=== PATIENT | female | born 1935 | race Caucasian/White ===

== ENCOUNTER 2019-08-01 11:48 | Emergency (ER) | payer MEDICARE, OTHER ==
--- NOTE | 2019-08-01 12:18 | PHYS DOC ---
Past History Past Medical History: CAD, CVA, Diabetes (EDDIE SANCHEZ DO) Past Surgical History: No Surgical History (EDDIE SANCHEZ DO) Smoking: Non-smoker Alcohol Use: None Drug Use: None (EDDIE SANCHEZ DO) Adult General Chief Complaint Chief Complaint: MEDICAL CLEARANCE [facility] HPI Patient is an 84-year-old female who presents for clearance for [facility]. Patient reportedly lives at home and has been having auditory hallucinations. Patient also has been having some angry outbursts was slamming doors. Patient denies any specific complaints other than that she keeps hearing the song that striving her batty. She denies any chest pain or shortness of breath. She also denies any nausea, vomiting or diarrhea.[] (YUDITH GA Jr. DO) Review of Systems Review of Systems Constitutional: Denies fever or chills [] Respiratory: Denies cough or shortness of breath [] Cardiovascular: No additional information not addressed in HPI [] GI: Denies abdominal pain, nausea, vomiting or diarrhea [] Integument: Denies rash or skin lesions [] Neurologic: Denies headache, focal weakness or sensory changes [] All other systems were reviewed and found to be within normal limits, except as documented in this note. (YUDITH GA Jr. DO) Physical Exam Physical Exam Constitutional: Well developed, well nourished, no acute distress, non-toxic appearance. [] HENT: Normocephalic, atraumatic, bilateral external ears normal, oropharynx moist, no oral exudates, nose normal. [] Eyes: PERRLA, EOMI, conjunctiva normal, no discharge. [] Neck: Normal range of motion, no tenderness, supple, no stridor. [] Cardiovascular: Regular rate and rhythm[] Lungs & Thorax: Bilateral breath sounds clear to auscultation [] Abdomen: Bowel sounds normal, soft, no tenderness. [] Skin: Warm, dry, no erythema, no rash. [] Extremities: No tenderness, no cyanosis, no clubbing, ROM intact. [] Neurologic: Awake and alert, no focal deficits noted. [] (YUDITH GA Jr. DO) Physical Exam Constitutional: Well developed, well nourished, no acute distress, non-toxic appearance HENT: Normocephalic, atraumatic, oropharynx moist Eyes: PERRL, EOMI, conjunctiva normal, no discharge Neck: Normal range of motion, no tenderness, supple Cardiovascular: Heart rate normal, regular rhythm Lungs & Thorax: Bilateral breath sounds clear to auscultation, no wheezing Abdomen: Soft, no tenderness Skin: Warm, dry, no erythema, no rash Extremities: No tenderness, ROM intact, no edema Neurologic: Alert and oriented, no focal deficits noted Psychologic: Affect flatl, judgement abnormal (EDDIE SANCHEZ DO) EKG EKG [] (YUDITH GA Jr., DO) Radiology/Procedures Radiology/Procedures [] (YUDITH GA Jr., DO) Course & Med Decision Making Course & Med Decision Making Pertinent Labs and Imaging studies reviewed. (See chart for details) [] (YUDITH GA Jr., DO) Course & Med Decision Making Addendum by Dr. Cotl Wright as 0553: I assumed care of patient at 1800. Patient had been evaluated and recommended involuntary inpatient psychiatric care. The patient is currently pending acceptance to another facility. Patient given home meds while in the emergency department. At time of sign out, patient resting comfortably and vital signs are stable. Patient signed out to nimisha Coyle physician. (COLT WRIGHT MD) Course & Med Decision Making 0600- Sign out received from Dr. Wright for patient with concern for psychosis and need for inpatient psychiatric services. Patient previously medically cleared. Labs reviewed. Patient also previously assessed and deemed to require inpatient psychiatric services. Awaiting placement. Patient seen and evaluated by myself. 1430- Dr. Edward Miramontes at [facility] in [facility] accepting of transfer. Discussed findings and plan with patient, who acknowledges understanding and agreement. (EDDIE SANCHEZ DO) Dragon Disclaimer Dragon Disclaimer This electronic medical record was generated, in whole or in part, using a voice recognition dictation system. (YUDITH GA Jr., DO) Departure Departure: Impression: Primary Impression: Auditory hallucinations Additional Impressions: Behavior disturbance Type 2 diabetes mellitus with hyperglycemia Disposition: 65 XFER TO PSYCH HOSP/UNIT ([place], [place] (accepted by Dr. Josh Miramontes)) Admitting Physician: Other (YUDITH GA Jr., DO) Condition: STABLE Referrals: NON,STAFF (PCP) Problem Qualifiers Additional Impressions: Type 2 diabetes mellitus with hyperglycemia Diabetes mellitus fci insulin use: unspecified fci insulin use status Qualified Codes: E11.65 - Type 2 diabetes mellitus with hyperglycemia YUDITH GA Jr. DO Aug 01, 2019 12:18 COLT WRIGHT MD Aug 02, 2019 05:56 EDDIE SANCHEZ DO Aug 02, 2019 09:19
--- NOTE | 2019-08-01 12:26 | EKG ---
[address] [address] Test Date: 2019-08-01 Test Time: 12:19:04 Pat Name: CARLOS ENRIQUE VERDUZCO Department: Room: Gender: F [employer]op Expander: : [id number] Requested By: YUDITH GA Order Number: [id number] Reading MD: Everett Berg MD Measurements Intervals [place] Rate: 60 P: 45 ID: [id number] QRS: 11 QRSD: 68 T: 31 QT: 434 QTc: 434 Interpretive Statements SINUS RHYTHM Electronically Signed On 08-08-2019 11:33:46 CDT by Everett Berg MD
[2019-08-01 12:27] LABS: BASO # 0.1 x10^3/uL (0.0-0.2); BASO % 1 % (0-3); EOS # 0.4 x10^3/uL (0.0-0.7); EOS % 6 % (0-3); HEMATOCRIT 36.7 % (36.0-47.0); LYMPH # 1.5 x10^3/uL (1.0-4.8); LYMPH % 21 % (24-48); MEAN CORPUSCULAR HEMOGLOBIN 33 pg (25-35); MEAN CORPUSCULAR HGB CONC 33 g/dL (31-37); MEAN CORPUSCULAR VOLUME 100 fL (79-100); MONO # 0.5 x10^3/uL (0.0-1.1); MONO % 7 % (0-9); NEUT # 4.6 x10^3uL (1.8-7.7); NEUT % 66 % (31-73); PLATELET COUNT 305 x10^3/uL (140-400); RED BLOOD COUNT 3.67 x10^6/uL (3.50-5.40); RED CELL DISTRIBUTION WIDTH 14.6 % (11.5-14.5)
[2019-08-01 12:41] LABS: ALBUMIN 3.2 g/dL (3.4-5.0); ALBUMIN/GLOBULIN RATIO 0.8 (1.0-1.7); CREATININE 1.1 mg/dL (0.6-1.0); GFR 47.3; POTASSIUM 3.8 mmol/L (3.5-5.1); TOTAL BILIRUBIN 0.3 mg/dL (0.2-1.0)
[2019-08-01] MEDS ORDERED: ALPRAZolam 0.25 MG TABLET ONE (13:18)
[2019-08-01 13:25] LABS: BARBITURATES NEG (NEG); BENZODIAZEPINES NEG (NEG); CANNABINOIDS NEG (NEG); COCAINE NEG (NEG); METHADONE NEG (NEG); OPIATES NEG (NEG); PHENCYCLIDINE NEG (NEG)
[2019-08-01 13:26] LABS: AMPHETAMINE/METHAMPHETAMINE NEG (NEG)
[2019-08-01] MEDS ORDERED: ALPRAZolam 0.25 MG TABLET PO ONE (13:30)
[2019-08-01 13:37] LABS: BACTERIA,URINE FEW /HPF (0-FEW); BILIRUBIN,URINE NEG (NEG); CLARITY,URINE CLEAR; COLOR,URINE STRAW; GLUCOSE,URINE >=1000 mg/dL (NEG); NITRITE,URINE NEG (NEG); RBC,URINE 0 /HPF (0-2); SQUAMOUS EPITHELIAL CELL,UR MOD /LPF; UROBILINOGEN,URINE 0.2 mg/dL (0.2 mg/dL); WBC,URINE 0 /HPF (0-4)
[2019-08-01] MEDS ORDERED: IV NORMAL SALINE 1,000ML 1,000 ML IV ONE (14:00)
[2019-08-01] MEDS ORDERED: INSULIN REGULAR 100 UNIT/ML 3ML VIAL. IV ONE (14:30)
[2019-08-01] MEDS ORDERED: PRAV80TA2 PO (21:59)
[2019-08-01] MEDS ORDERED: METOPROLOL SUCC 24HR ER 25 MG TAB.ER.24H. PO ONE (22:15)
[2019-08-01] MEDS ORDERED: POTASSIUM CHLORIDE 10 MEQ TABLET.ER. PO ONE (22:15)
[2019-08-01] MEDS ORDERED: ATORVASTATIN CALCIUM 20 MG TABLET PO ONE (22:15)
[2019-08-02] MEDS ORDERED: LEVOTHYROXINE 88 MCG TABLET PO SCH (07:30)
[2019-08-02] MEDS ORDERED: INSULIN LISPRO 300 UNITS/3 ML VIAL. SQ SCH (07:30)
[2019-08-02] MEDS ORDERED: LEVOTHYROXINE 100 MCG TABLET PO SCH (07:30)
[2019-08-02] MEDS ORDERED: CHOLECALCIFEROL (VITAMIN D3) 1,000 UNIT TABLET PO SCH (09:00)
[2019-08-02] MEDS ORDERED: ASPIRIN 81 MG TAB.CHEW PO SCH (09:00)
[2019-08-02] MEDS ORDERED: CLOPIDOGREL BISULFATE 75 MG TABLET PO SCH (09:00)
[2019-08-02] MEDS ORDERED: POTASSIUM CHLORIDE 10 MEQ TABLET.ER. PO SCH (09:00)
[2019-08-02] MEDS ORDERED: PANTOPRAZOLE 40 MG TABLET. PO SCH (09:00)
[2019-08-02] MEDS ORDERED: METOPROLOL SUCC 24HR ER 25 MG TAB.ER.24H. PO SCH (09:00)
[2019-08-02] MEDS ORDERED: GLIMEPIRIDE 2 MG TABLET PO SCH (09:00)
[2019-08-02] MEDS ORDERED: ALLOPURINOL 100 MG TABLET. PO SCH (09:00)
[2019-08-02 15:30] VITALS: BP 146/70
[2019-08-02] MEDS ORDERED: NON FORMULARY ITEM (Pravastatin Sodium 1 TAB) PO SCH (21:00)
[2019-08-02] MEDS ORDERED: ATORVASTATIN CALCIUM 20 MG TABLET PO SCH (21:00)
== END 2019-08-02 15:34 ==
LOC: ER 11:48
DX: R44.0 Auditory hallucinations (principal); F91.9 Conduct disorder, unspecified; E11.65 Type 2 diabetes mellitus with hyperglycemia; I25.10 Atherosclerotic heart disease of native coronary artery without angina pectoris; Z86.73 Personal history of transient ischemic attack (TIA), and cerebral infarction without residual deficits
CPT/HCPCS: 36415; 80053; 80307; 81001; 82947; 85025; 93005; 96361; 96374; 99285; G0480; J1815; J7030